=== PATIENT | male | born 1960 | race Caucasian/White ===

== ENCOUNTER 2018-01-29 11:38 | Emergency (ER) | payer MEDICAID ==
[~2018-01-29] VITALS: Ht 177.8 cm; Wt 99.3 kg
[~2018-01-29 11:38] MED LIST: CARAFATE1 GM PO; FERROUS SULFAT325 M2 PO; MOTRIN800 MG PO; NATURAL IRON65 MG; PRILOSEC20 MG PO; PRILOSEC40 MG PO; VITAMIN C500 M4 PO
[2018-01-29 11:50] VITALS: Ht 177.8 cm; Wt 99.3 kg
[2018-01-29 13:37] VITALS: BP 154/106
== END 2018-01-29 13:37 | disposition home or self-care (01) ==
LOC: ED 11:38
DX: S62.662A Nondisplaced fracture of distal phalanx of right middle finger, initial encounter for closed fracture (principal); Z88.0 Allergy status to penicillin; W23.0XXA Caught, crushed, jammed, or pinched between moving objects, initial encounter; Y93.89 Activity, other specified; Y99.8 Other external cause status; Y92.89 Other specified places as the place of occurrence of the external cause
CPT/HCPCS: J2270; Q0092; Q0162

== ENCOUNTER 2018-02-01 09:04 | Emergency (ER) | payer MEDICAID ==
[~2018-02-01] VITALS: Ht 177.8 cm; Wt 99.3 kg
[2018-02-01 09:12] VITALS: Ht 177.8 cm; Wt 99.3 kg
[2018-02-01 11:42] VITALS: BP 134/62
== END 2018-02-01 11:42 | disposition home or self-care (01) ==
LOC: ED 09:04
DX: S67.192D Crushing injury of right middle finger, subsequent encounter (principal); X58.XXXD Exposure to other specified factors, subsequent encounter; Z88.0 Allergy status to penicillin